=== PATIENT | female | born 1995 | race American Indian/Alaskan Native ===

== ENCOUNTER 2017-05-08 09:10 | Emergency (ER) | payer OTHER ==
[2017-05-08] MEDS ORDERED: TYLENOL ONE (10:01)
[2017-05-08] MEDS ORDERED: TYLENOL PO ONE (10:06)
[2017-05-08 10:27] LABS: Basophils % (Auto) 0.2 % (0.0-1.8); Hematocrit 38.3 % (30.3-42.9); Hemoglobin 12.3 gm/dl (10.1-14.3); Lymphocytes # (Auto) 1.9 K/mm3 (1.2-5.4); Lymphocytes % (Auto) 12.7 % (13.4-35.0); Mean Corpuscular HGB Conc 32 % (30-34); Mean Corpuscular Volume 80 fl (79-97); Monocytes # (Auto) 1.3 K/mm3 (0.0-0.8); Monocytes % (Auto) 8.6 % (0.0-7.3); Platelet Count 242 K/mm3 (140-440); Red Cell Distribution Width 14.9 % (13.2-15.2)
[2017-05-08 10:30] LABS: Bacteria,Urine 2+ /HPF (Negative); Bilirubin,Urine NEG (Negative); Blood,Urine NEG (Negative); Color,Urine Yellow (Yellow); Mucus,Urine FEW /HPF
[2017-05-08 10:32] LABS: HCG Qualitative,Urine Negative (Negative)
[2017-05-08 10:33] LABS: Mean Corpuscular Hemoglobin 26 pg (28-32)
[2017-05-08 10:46] LABS: Alanine Aminotransferase 16 units/L (7-56); Albumin 3.7 g/dL (3.9-5); BUN/Creatinine Ratio 9; Blood Urea Nitrogen 6 mg/dL (7-17); Calcium 8.8 mg/dL (8.4-10.2); Hemolysis Index 44
--- NOTE | 2017-05-08 11:37 | XRay Report ---
AP CHEST: HISTORY: Nonproductive cough AP view of the chest demonstrates a normal mediastinal and cardiac contour with clear lungs and normal bony and soft tissue structures. IMPRESSION: Unremarkable AP chest.
[2017-05-08] MEDS ORDERED: NACL 0.9% 1000 ML 1,000 ML IV ONE (12:26)
[2017-05-08] MEDS ORDERED: ZOFRAN ODT PO ONE (12:26)
[2017-05-08] MEDS ORDERED: TORADOL IV ONE (12:26)
[2017-05-08] MEDS ORDERED: ROCEPHIN/NS 1 GM/50 ML 1 GM/50 ML BAG IV ONE (12:29)
--- NOTE | 2017-05-08 12:29 | Emergency Department Report ---
HPI - General Chief Complaint: Fever Time Seen by Provider: 05/08/17 12:28 - HPI HPI: Patient complain of dizziness and syncopal episode at home. She said she was feeling dizzy today and she fell to the floor. Denies any head injury. Denies any nausea or vomiting. She says she felt dizzy and then she passed out but denies any loss of consciousness. She said for the last 2 days she's been having nonproductive cough and fever at home with MAXIMUM TEMPERATURE of 102. She says she's been taking [id number] medication without any relief. Patient is complaining of generalized achiness at 10 out of 10 nothing make it better and nothing makes it worse. She has a history of asthma and endometriosis. Patient also said she has a yeast infection which she has leg clumpy white cottage cheese discharge coming from her vaginal area without any odor. She said that she has been using [id number] yeast medication but it 's not helping. She is reporting itching. When asked, patient says she is no concern for STD K she is currently not sexually active. She is reporting urinary burning and vaginal inflammation on the inside. She said she feels pain worse with urinating. She also is having lower back pain. Denies any loss of bowel or bladder function. Denies any abdominal pain. Denies any vomiting but reports that she has some nausea. Denies any diarrhea. ED Past Medical Hx - Past Medical History Previous Medical History?: Yes Hx Asthma: Yes Additional medical history: endometerosis - Surgical History Past Surgical History?: No - Family History Family history: hypertension - Social History Smoking Status: Never Smoker Substance Use Type: None - Medications Home Medications: Home Medications Medication Instructions Recorded Confirmed Last Taken Type Omeprazole [PriLOSEC] 20 mg PO QDAY #10 capsule. 08/13/15 Unknown Rx traMADol [Ultram] 50 mg PO Q6HR PRN #10 tablet 08/13/15 Unknown Rx Cephalexin [Keflex] 500 mg PO Q8HR 7 Days #21 cap 05/08/17 Unknown Rx Cetirizine HCl [ZyrTEC] 10 mg PO QAM 14 Days #14 capsule 05/08/17 Unknown Rx Fluconazole [Diflucan TAB] 150 mg PO QDAY PRN 2 Days #2 tablet 05/08/17 Unknown Rx Fluticasone [Flonase] 1 spray NS QDAY 14 Days #1 bottle 05/08/17 Unknown Rx Ibuprofen [Motrin] 600 mg PO Q6H PRN #12 tablet 05/08/17 Unknown Rx Nitrofurantoin Monohyd/M-Cryst 100 mg PO Q12H 7 Days #14 capsule 05/08/17 Unknown Rx [Macrobid 100 mg Capsule] Promethazine [Phenergan TAB] 25 mg PO Q6HR PRN #12 tab 05/08/17 Unknown Rx metroNIDAZOLE [Flagyl] 500 mg PO Q12HR 7 Days #14 tab 05/08/17 Unknown Rx ED Review of Systems ROS: Stated complaint: FEVER/FAINTING Other details as noted in HPI Comment: All other systems reviewed and negative Constitutional: chills, fever, weakness Eyes: denies: eye pain, eye discharge, vision change ENT: denies: ear pain, throat pain, dental pain, hearing loss, epistaxis, congestion Respiratory: cough. denies: orthopnea, shortness of breath, SOB with exertion, SOB at rest, stridor, wheezing Cardiovascular: syncope. denies: chest pain, palpitations, dyspnea on exertion , orthopnea, edema, paroxysmal nocturnal dyspnea Gastrointestinal: nausea. denies: abdominal pain, vomiting, diarrhea, constipation, hematemesis, melena, hematochezia Genitourinary: dysuria, frequency, discharge. denies: urgency, hematuria, abnormal menses, dyspareunia Musculoskeletal: back pain, myalgia. denies: joint swelling, arthralgia Skin: denies: rash Neurological: weakness, other (dizziness ). denies: headache, numbness, paresthesias, confusion, abnormal gait, vertigo Physical Exam - Physical Exam Vital Signs: Vital Signs 05/08/17 09:46 Temperature 100.2 F H Pulse Rate 119 H Respiratory 16 Rate Blood Pressure 129/70 O2 Sat by Pulse 97 Oximetry Vital Signs 05/08/17 05/08/17 05/08/17 09:46 15:59 16:00 Temperature 100.2 F H 98.6 F Pulse Rate 119 H Pulse Rate [ 81 Lying] Pulse Rate [ 82 Sitting] Pulse Rate [ 88 Standing] Respiratory 16 Rate Blood Pressure 129/70 Blood Pressure 124/67 [Lying] Blood Pressure 119/72 [Sitting] Blood Pressure 122/78 [Standing] O2 Sat by Pulse 97 Oximetry General: This is a 31-year-old female well-nourished well-developed. She is nontoxic in appearance and appears mildly ill. Physical Exam: Head: Normocephalic, atraumatic, no abrasion, no bruising and no contusion. Eyes: Biateral pupils equal and reactive to light, bilateral EOM intact.. Bilateral conjunctival and sclera without injection, normal accommodation. No nystagmus Mouth: Mucosa dry, no pharyngeal exudate or erythema. No peritonsillar abscesses. Uvula is midline and oral airways patent. Ears: Bilateral TMs congested without erythema. Bilateral EAC without any redness swelling or drainage. No mastoid bone tenderness Nose: Bilateral nasal mucosa congested with clear drainage,Maxillary and frontal sinuses non-tender to palpate. Neck: Supple, No Cervical adenopathy, full range of motion and no C-spine tenderness. No swelling or tracheal deviation normal reflexes Cardiovascular: S1, S2. Tachycardic at 119 .EKG sinus rhythm at [address] abnormality. Regular rhythm. No murmur. Capillary refill is less then 3 seconds. Lungs: Clear to auscultate bilaterally. No rhonchi, wheezes or rales. No chest wall tenderness. No chest contusion. No bruising to chest. MSK: Strength 5/5 in all extremities. No joint deformity or crepitus. Normal inspection. Full range of motion to all extremities. No laceration, abrasion or ecchymotic area noted. Abdomen: Non-tender to palpate quadrants except for left lower quadrant where she has mild tenderness. no guarding or rebound tenderness, positive bowel sounds in all quadrants. No CVA tenderness. No hernia, bruit or mass. No rigidity or distention. Female : Extremities: No clubbing, cyanosis or edema. +2 pulses. No neurovascular compromise Skin: Clean, dry and intact. No rash or lesions. Neurological: GCS at 15, Pt is alert and oriented 3 speech is clear . No facial drooping. Positive Romberg and positive pronator drift. Bilateral hand director of industrial relations strong and equal. Normal gait. Normal Reflexes. No motor or sensory deficit Back: No vertebral tenderness, no paraspinal tenderness. Negative SLR bilaterally. Ambulates without any difficulties. Psych: Normal mood and behavior ED Course Vital Signs 05/08/17 09:46 Temperature 100.2 F H Pulse Rate 119 H Respiratory 16 Rate Blood Pressure 129/70 O2 Sat by Pulse 97 Oximetry Vital Signs 05/08/17 05/08/17 05/08/17 09:46 15:59 16:00 Temperature 100.2 F H 98.6 F Pulse Rate 119 H Pulse Rate [ 81 Lying] Pulse Rate [ 82 Sitting] Pulse Rate [ 88 Standing] Respiratory 16 Rate Blood Pressure 129/70 Blood Pressure 124/67 [Lying] Blood Pressure 119/72 [Sitting] Blood Pressure 122/78 [Standing] O2 Sat by Pulse 97 Oximetry - Reevaluation(s) Reevaluation #1: 05/08/17 12:40 Nurse to get orthostatic vital signs. Patient received Tylenol 975 mg in triage area for fever and body aches that she says she feels a little better but still feels weak and dizzy. Reevaluation #2: 05/08/17 14:00 Patient given Tylenol 975 mg in triage area for fever and body ache. She voiced she was feeling a little better but she still in pain. She was given Rocephin 1 g IV, 1 L normal saline IV, Toradol 30 mg IV and Zofran 8 mg ODT. Patient is stable. Awaiting an ultrasound. Chest x-ray reveals no acute cardiopulmonary findings. CT scan of the head and brain without contrast reveals no acute abnormality. No sinus disease seen. Still awaiting orthostatic vitals. Nurse reminded to get vital signs the patient to check for orthostatic. Reevaluation #3: 05/08/17 16:26 Orthostatic vital signs are stable. Wet prep shows less than 20% clue cell, no trichomoniasis and no yeast. Gonorrhea and chlamydia is pending. Patient does not want to be treated for gonorrhea and Chlamydia because she said that she is not having sex and she is not concerned for STD. She was given ceftriaxone for urinary tract infection which will cover gonorrhea in case. Patient says she is feeling a lot better. Ultrasound pelvic revealed left ovarian cyst. Pelvic exam stable, large amount of discharge and cervix. Positive left adnexal tenderness. No CMT ED Medical Decision Making - Lab Data Result diagrams: 05/08/17 10:11 05/08/17 10:11 Lab Results 05/08/17 05/08/17 05/08/17 Range/Units 10:11 10:11 10:11 WBC 15.2 H (4.5-11.0) K/mm3 RBC 4.80 (3.65-5.03) M/mm3 Hgb 12.3 (10.1-14.3) gm/dl Hct 38.3 (30.3-42.9) % MCV 80 (79-97) fl MCH 26 L (28-32) pg MCHC 32 (30-34) % RDW 14.9 (13.2-15.2) % Plt Count 242 (140-440) K/mm3 Lymph % (Auto) 12.7 L (13.4-35.0) % [place] % (Auto) 8.6 H (0.0-7.3) % Eos % (Auto) 0.0 (0.0-4.3) % Baso % (Auto) 0.2 (0.0-1.8) % Lymph # 1.9 (1.2-5.4) K/mm3 [place] # 1.3 H (0.0-0.8) K/mm3 Eos # 0.0 (0.0-0.4) K/mm3 Baso # 0.0 (0.0-0.1) K/mm3 Seg Neutrophils % 78.5 H (40.0-70.0) % Seg Neutrophils # 12.0 H (1.8-7.7) K/mm3 Sodium 133 L (137-145) mmol/L Potassium 4.1 (3.6-5.0) mmol/L Chloride 95.3 L (98-107) mmol/L Carbon Dioxide 24 (22-30) mmol/L Anion Gap 18 mmol/L BUN 6 L (7-17) mg/dL Creatinine 0.7 (0.7-1.2) mg/dL Estimated GFR > 60 ml/min BUN/Creatinine Ratio 9 % Glucose 121 H (65-100) mg/dL Calcium 8.8 (8.4-10.2) mg/dL Total Bilirubin 0.30 (0.1-1.2) mg/dL AST 22 (5-40) units/L ALT 16 (7-56) units/L Alkaline Phosphatase 59 (35-129) units/L Total Protein 8.0 (6.3-8.2) g/dL Albumin 3.7 L (3.9-5) g/dL Albumin/Globulin Ratio 0.9 % Urine Color Yellow (Yellow) Urine Turbidity Clear (Clear) Urine pH 6.0 (5.0-7.0) Ur Specific [place] 1.025 (1.003-1.030) Urine Protein 100 mg/dl (Negative) mg/dL Urine Glucose (UA) Neg (Negative) mg/dL Urine Ketones 20 (Negative) mg/dL Urine Blood Neg (Negative) Urine Nitrite Neg (Negative) Urine Bilirubin Neg (Negative) Urine Urobilinogen 2.0 (<2.0) mg/dL Ur Leukocyte Esterase Lg (Negative) Urine WBC (Auto) 48.0 H (0.0-6.0) /HPF Urine RBC (Auto) 20.0 (0.0-6.0) /HPF U Epithel Cells (Auto) 7.0 (0-13.0) /HPF Urine Bacteria (Auto) 2+ (Negative) /HPF Urine Mucus Few /HPF Urine HCG, Qual Negative (Negative) Wet prep revealed less than 20% clue cell, no trichomonas and no yeast. Blood cultures are pending Urine culture pending - EKG Data -: EKG Interpreted by Me (attending physician) EKG shows normal: sinus rhythm Rate: normal - EKG Data Interpretation: no acute changes (heart beat is at 92 bpm on EKG) - Radiology Data Radiology results: report reviewed Chest x-ray reveals no acute cardiopulmonary findings. CT scan of the brain without contrast revealed no acute findings. Pelvic ultrasound revealed left ovarian cyst measuring 2.1 cm which is complex. Radiologist questioned him in. Right ovary is normal uterus is normal and anteflexed endometrium is normal no pelvic fluid - Medical Decision Making ED course: Pt here reported syncopal episode along with urinary symptoms, cough and cold symptoms. Patient and found to have upper respiratory tract infection with cough and congestion, acute cystitis, fever in adult, bacterial vaginosis, vaginal itching. Ovarian cysts, syncopal episode without any abnormality and CT scan. Her lab work included CBC reveal patient with elevation in white count with shift into the left. Urinalysis showed patient with urinary tract infection, ultrasound of pelvic showed patient with left ovarian cyst and pelvic exam done in patient with adnexal tenderness left, no CMT and patient with large amount of discharge on cervix. No vaginal bleeding noted. Patient external vaginal area is normal. She has left lower quadrant abdominal pain. Chemistry is within normal limits with some slight abnormality but insignificant. Patient received 1 L of normal saline and was able tolerate oral juice in the emergency room prior to discharge. She received Tylenol 975 mg in triage area for fever, she received Rocephin 1 g IV for urinary tract infection, Benadryl 50 mg IV for itching to vaginal area. Toradol 30 mg IV for generalized pain, Zofran 8 mg by mouth ODT. Patient says she felt better after medication and IV fluid. Chest x-ray reveals no acute cardiopulmonary processes. Urine culture and blood culture pending wet prep shows patient with clue cells, negative trichomoniasis or yeast. Gonorrhea and chlamydia is pending and patient does not want to be treated because she says she is not sexually active. I discussed with patient all her radiology results and also her laboratory results. I discussed with her diagnosis and treatment plan and need to follow-up. She voiced understanding and. I discussed with her that if she feels worse that she needs to return to the emergency room otherwise follow- up with primary care physician. Patient discharged home with prescription for Macrobid for bladder infection and add Keflex in case infection is moving to her kidneys for empiric treatment. She was given Flagyl, Diflucan, and, Phenergan, Zyrtec, Flonase and ibuprofen. Critical care attestation.: If time is entered above; I have spent that time in minutes in the direct care of this critically ill patient, excluding procedure time. ED Disposition Clinical Impression: Acute cystitis with hematuria, Musculoskeletal pain, Dysuria, Vaginal discharge , Vaginal itching, Left ovarian cyst, Upper respiratory infection with cough and congestion, Dehydration, Fever in adult, Nausea alone Leukocytosis Qualifiers: Leukocytosis type: unspecified Qualified Code(s): D72.829 - Elevated white blood cell count, unspecified Syncope Qualifiers: Syncope type: unspecified Qualified Code(s): R55 - Syncope and collapse Disposition: DC-01 TO HOME OR SELFCARE Is pt being admited?: No Does the pt Need Aspirin: No Condition: Stable Instructions: Bacterial Vaginosis (ED), Ovarian Cyst (ED), Dehydration (ED), Urinary Tract Infection in Women (ED), Fever in Adults (ED), Syncope (ED), Upper Respiratory Infection (ED), Acute Nausea and Vomiting (ED), Leukocytosis ( ED), Dysuria (ED), Musculoskeletal Pain (ED), Dizziness (ED) Additional Instructions: Please increase her fluid intake to 2-3 L of water daily to prevent dehydration and keep temperature down Take Motrin every 6 hours for 2 days to help with pain and fever and then as needed. These follow-up with the primary care physician in 2 days Take antibiotic for urinary tract infection If you condition worsens, please return to the emergency room [place] Take Phenergan for nausea but please do not drive or operate heavy machinery while taking this medication as his cause drowsiness Takes Zyrtec and Flonase for congestion Take Flagyl for bacterial vaginosis and Diflucan on for symptoms of yeast infection. Prescriptions: Cephalexin [Keflex] 500 mg PO Q8HR 7 Days #21 cap Cetirizine HCl [ZyrTEC] 10 mg PO QAM 14 Days #14 capsule Fluconazole [Diflucan TAB] 150 mg PO QDAY PRN 2 Days #2 tablet PRN Reason: yeast infection Fluticasone [Flonase] 1 spray NS QDAY 14 Days #1 bottle Ibuprofen [Motrin] 600 mg PO Q6H PRN #12 tablet PRN Reason: fever and her pain metroNIDAZOLE [Flagyl] 500 mg PO Q12HR 7 Days #14 tab Nitrofurantoin Monohyd/M-Cryst [Macrobid 100 mg Capsule] 100 mg PO Q12H 7 Days # 14 capsule Promethazine [Phenergan TAB] 25 mg PO Q6HR PRN #12 tab PRN Reason: Nausea Referrals: PRIMARY CAREMD [Primary Care Provider] - 05/10/17 [facility] [Outside] - 05/10/17 ANA LAURA CULLEN MD [Staff Physician] - 2-3 Days Forms: Work/School Release Form(ED)
--- NOTE | 2017-05-08 13:03 | Cat Scan Report ---
FINAL REPORT EXAM: CT HEAD/BRAIN WO CON HISTORY: syncopal x2 TECHNIQUE: CT of the head was performed. No intravenous contrast was administered. PRIORS: None. FINDINGS: There is no evidence of intracranial hemorrhage. There is no edema, mass effect or midline shift. There are no abnormal extra-axial fluid collections. The ventricles are appropriate for brain volume. There is no skull fracture seen. The visualized aspects of the sinuses are clear. IMPRESSION: There is no acute intracranial abnormality identified.
[2017-05-08] MEDS ORDERED: cefTRIAXone 1 GM in NACL 0.9% 20 ML IV ONE (13:30)
[2017-05-08] MEDS ORDERED: BENADRYL IV ONE (14:54)
[2017-05-08 16:00] VITALS: BP 124/67
--- NOTE | 2017-05-09 08:39 | Ultrasound Report ---
FINAL REPORT EXAM: US PELVIC COMPLETE HISTORY: pelvic pain, vaginal discharge TECHNIQUE: Pelvic ultrasound. Transabdominal study PRIORS: None. FINDINGS: There is no uterine mass is seen. The uterus measures 7.1 x 3.6 x 4.4 cm. Endometrial thickness is 5.2 mm. The right ovary measures 2.0 x 1.2 x 2.3 cm. The left ovary measures 3.0 x 1.9 x 2.7 cm. There is a 2.1 x 1.5 by 1.8 cm left ovarian cyst with internal echoes. There is no free fluid in the cul-de-sac. IMPRESSION: Transabdominal imaging only. There is a 2.1 x 1.5 x 1.8 cm left ovarian cyst with internal echoes. This is likely a hemorrhagic dominant follicle. No other significant finding.
== END 2017-05-08 16:59 | disposition home or self-care (01) ==
LOC: ED 09:10
DX: N30.01 Acute cystitis with hematuria (principal); N83.202 Unspecified ovarian cyst, left side; J06.9 Acute upper respiratory infection, unspecified; E86.0 Dehydration; D72.829 Elevated white blood cell count, unspecified
CPT/HCPCS: 36415; 70450; 71045; 76856; 80053; 81001; 81025; 85025; 87040; 87086; 87210; 87591; 93005; 93010; 96361; 96365; 96375; 99285; J0696; J1200; J1885; J7030; Q0162